=== PATIENT | female | born 1935 | race Caucasian/White ===

== ENCOUNTER 2017-05-29 11:05 | Inpatient (IN) | payer MEDICARE ==
[~2017-05-29] VITALS: Ht 172.7 cm; Wt 56.9 kg
[2017-05-29 11:24] VITALS: BP 188/81; PULSE 83; RESP 19; TEMP 98.3; O2SAT 97
--- NOTE | 2017-05-29 11:27 | PD ---
HPI Chief Complaint: Fall Time Seen by Provider: 11:22 Travel History International Travel<30 days: No Contact w/Intl Traveler<30days: No History of Present Illness HPI 81-year-old female with PMH of HTN, rheumatoid arthritis presents to the ED for evaluation of constant 4/10 left hip pain. Worsened by attempted range of motion. Onset after the patient tripped from standing yesterday and fell onto the concrete, landing on her back, striking her head. Patient denies loss of consciousness. She states that a passerby helped her into a wheelchair and her home. She's been able to transfer from the wheelchair to the commode but otherwise unable to bear weight. On presentation she denies headache, dizziness , vision changes, chest pain, palpitations, shortness of breath, nausea, vomiting, abdominal pain, dysuria, back pain, limitations to range of motion of the upper extremities and right leg. She has a history of a total hip replacement done 10 years ago in [place]. She ate dinner last night. Nothing to eat or drink today. She is followed by , PCP. [facility] Social History Tobacco Use: No Allergies-Medications (Allergen,Severity, Reaction): Coded Allergies: No Known Allergies (Unverified , 05/29/17) Reported Meds & Prescriptions Reported Meds & Active Scripts Active Reported Prednisone 20 Mg Tab 20 Mg PO DIRECTED 40 MG twice a day x 3 days, then 20 MG daily x 3 days, then 10 MG daily x 3 days Simvastatin 5 Mg Tab 5 Mg PO DAILY Hydroxychloroquine (Hydroxychloroquine Sulfate) 200 Mg Tab 200 Mg PO BID Takw with food Ocuvite (Multiple Vitamins W/ Minerals) 1 Tab 1 Tab PO DAILY Folic Acid 1 Mg Tablet Lisinopril 5 Mg Tab 5 Mg PO DAILY Amlodipine (Amlodipine Besylate) 5 Mg Tab 5 Mg PO DAILY Review of Systems Except as stated in HPI: all other systems reviewed are Neg Physical Exam Narrative GENERAL: Well-nourished, well-developed white female in no acute distress. On a backboard, alert, oriented. SKIN: Warm and dry. Thorough evaluation reveals no edema, ecchymosis, abrasion , or laceration of the skin. HEAD: Normocephalic. Atraumatic. No raccoon eyes or allen sign. No tenderness to palpation of the skull. No bony step-offs. No malocclusion of the teeth. EYES: No scleral icterus. No injection or drainage. PERRLA. EOMI. ENT: Pearly medina tympanic membrane is bilaterally. Nasal mucosa is moist. Oropharynx without erythema, edema or exudate. NECK: Supple, trachea midline. No JVD or lymphadenopathy. No midline tenderness to palpation. Patient retains full, active, painless range of motion of the neck. CARDIOVASCULAR: Regular rate and rhythm without murmurs, gallops, or rubs. 2+ DP and radial pulses bilaterally. RESPIRATORY: Breath sounds clear and equal bilaterally. No accessory muscle use. GASTROINTESTINAL: Abdomen soft, non-tender, nondistended. + Bowel sounds FOCUSED LEFT LOWER EXTREMITY EXAM: 2+ DP pulse. No tenderness to palpation of the anterior lateral hip or groin. Pain elicited with attempted internal and external rotation of the extremity. No foreshortening of the leg. Leg rests in internal rotation. Patient is able to wiggle her toes and flex her ankle. Cap refill less than 2 seconds. Sensation intact to light touch distally. MUSCULOSKELETAL: No cyanosis, or edema. No tenderness to palpation or limitations to range of motion of the remaining joints of the upper and lower extremities bilaterally. NEUROLOGICAL: Awake and alert. Cranial nerves II through XII intact. Motor and sensory grossly within normal limits. 5/5 muscle strength in all muscle groups. Normal speech. BACK: Nontender without obvious deformity. No CVA tenderness. No midline tenderness. Data Data Last Documented VS Vital Signs Date Time Temp Pulse Resp B/P (MAP) Pulse Ox O2 Delivery O2 Flow Rate FiO2 05/29/17 11:30 98.3 83 19 167/75 (105) 97 Room Air Orders Orders Ct Brain W/O Iv Contrast(Rout) (05/29/17 11:22) Hip, Uni(Ap&Lat) W Ap Pelvis (05/29/17 11:22) Iv Access Insert/Monitor (05/29/17 11:22) Oximetry (05/29/17 11:22) Ecg Monitoring (05/29/17 11:22) Ondansetron Inj (Zofran Inj) (05/29/17 11:30) Sodium Chloride 0.9% Flush (Ns Flush) (05/29/17 11:30) Morphine Inj (Morphine Inj) (05/29/17 11:30) Electrocardiogram (05/29/17 12:08) Complete Blood Count With Diff (05/29/17 12:08) Comprehensive Metabolic Panel (05/29/17 12:08) Prothrombin Time / Inr (Pt) (05/29/17 12:08) Act Partial Throm Time (Ptt) (05/29/17 12:08) Urinalysis - C+S If Indicated (05/29/17 12:08) Type And Screen (05/29/17 12:08) Chest, Single Ap (05/29/17 12:08) Sodium Chloride 0.9% Flush (Ns Flush) (05/29/17 12:15) Urinary Catheter Insert/Apply (05/29/17 12:08) Consult Orthopedic (05/29/17 ) (Hub Use Only)Inp Phy Cons/Ref (05/29/17 ) Mri Brain W&W/O Contrast (05/29/17 ) Admit Order (Ed Use Only) (05/29/17 13:12) Labs Laboratory Tests Test 05/29/17 12:35 05/29/17 13:00 White Blood Count 6.6 TH/MM3 Red Blood Count 3.39 MIL/MM3 Hemoglobin 9.3 GM/DL Hematocrit 28.5 % Mean Corpuscular Volume 84.2 FL Mean Corpuscular Hemoglobin 27.5 PG Mean Corpuscular Hemoglobin Concent 32.6 % Red Cell Distribution Width 13.8 % Platelet Count 164 TH/MM3 Mean Platelet Volume 9.3 FL Neutrophils (%) (Auto) 80.1 % Lymphocytes (%) (Auto) 6.2 % Monocytes (%) (Auto) 13.2 % Eosinophils (%) (Auto) 0.2 % Basophils (%) (Auto) 0.3 % Neutrophils # (Auto) 5.3 TH/MM3 Lymphocytes # (Auto) 0.4 TH/MM3 Monocytes # (Auto) 0.9 TH/MM3 Eosinophils # (Auto) 0.0 TH/MM3 Basophils # (Auto) 0.0 TH/MM3 CBC Comment DIFF FINAL Differential Comment Prothrombin Time 11.4 SEC Prothromb Time International Ratio 1.0 RATIO Activated Partial Thromboplast Time 23.1 SEC Blood Urea Nitrogen 35 MG/DL Creatinine 1.41 MG/DL Random Glucose 81 MG/DL Total Protein 6.4 GM/DL Albumin 3.2 GM/DL Calcium Level 8.5 MG/DL Alkaline Phosphatase 48 U/L Aspartate Amino Transf (AST/SGOT) 52 U/L Alanine Aminotransferase (ALT/SGPT) 32 U/L Total Bilirubin 1.0 MG/DL Sodium Level 143 MEQ/L Potassium Level 3.7 MEQ/L Chloride Level 107 MEQ/L Carbon Dioxide Level 28.0 MEQ/L Anion Gap 8 MEQ/L Estimat Glomerular Filtration Rate 36 ML/MIN Urine Color LIGHT-YELLOW Urine Turbidity CLEAR Urine pH 6.0 Urine Specific [place] 1.013 Urine Protein TRACE mg/dL Urine Glucose (UA) NEG mg/dL Urine Ketones NEG mg/dL Urine Occult Blood NEG Urine Nitrite NEG Urine Bilirubin NEG Urine Urobilinogen LESS THAN 2.0 MG/DL Urine Leukocyte Esterase NEG Urine RBC 4 /hpf Urine WBC LESS THAN 1 /hpf Urine Bacteria RARE /hpf Urine Mucus FEW /lpf Microscopic Urinalysis Comment CATH-CULTURE IND MDM Medical Decision Making Medical Screen Exam Complete: Yes Emergency Medical Condition: Yes Differential Diagnosis Femoral neck fracture versus femoral shaft fracture versus pelvic fracture versus dislocation versus contusion versus musculoskeletal pain versus skull fracture versus ICH versus other Narrative Course 81-year-old female with PMH of HTN, rheumatoid arthritis presents to the ED for evaluation of constant 4/10 left hip pain,worsened by attempted ROM or weightbearing. Onset after the patient tripped from standing yesterday and fell onto the concrete, landing on her back, striking her head. Denies LOC.. She states that a passerby helped her into a wheelchair and her home. She has a history of a total hip replacement done 10 years ago in [place]. She ate dinner last night. Nothing to eat or drink today. She is followed by , PCP. Vitals reviewed. Physical exam reveals a pleasant white female in no acute distress. There is a 2+ DP pulse in the left leg which is internally rotated but not shortened. Patient is able to wiggle toes and flex the ankle but any attempted internal or external rotation of the hip elicits pain. Patient was ordered nothing by mouth, administered 2 mg morphine and 4 mg Zofran IV. X-RAY LEFT HIP AND PELVIS: Previous arthroplasty. Acute fracture of the proximal femoral diaphysis per radiology read. CT brain: 6 mm focus of increased density as described above. A small mass such as a cavernoma can have this appearance. Acute hemorrhage but less likely. MRI of the brain with and without contrast helpful for further evaluation if felt clinically warranted per radiology read. EKG: Rate 75, sinus rhythm. [place] interval 158, QRS 116, QTc 444 ms. Normal axis. No acute ST changes. Reviewed by Dr. Cummins CBC, CMP, coags, UA, type and screen, chest x-ray ordered and pending. MRI brain with and without contrast: Negative. No evidence for mass per radiology read. Meier catheter was inserted. I discussed the results of the radiological studies with the patient. She is agreeable to admission and orthopedic consultation. I spoke with Dr. Paul by phone. He does not feel that the fracture is surgical at this point. He will consult on the patient. The patient's is wheelchair bound and unable to help her with ADLs. She will likely require admission to a SNF. I spoke with Dr. Byers who agrees to accept the patient to the medicine service. Fabiana Lauren May 29, 2017 11:26
[2017-05-29 11:30] VITALS: BP 167/75; PULSE 83; RESP 19; TEMP 98.3; O2SAT 97
[2017-05-29] MEDS ORDERED: SODIUM CHLORIDE 0.9% FLUSH 10 ML FLUSH IVF PRN ×2 (11:30→12:15)
[2017-05-29] MEDS ORDERED: MORPHINE SULFATE 2 MG/ML INJ IV PUSH ONE (11:30)
[2017-05-29] MEDS ORDERED: ONDANSETRON HCL 4 MG/2 ML VIAL IVP ONE (11:30)
[2017-05-29] MEDS ORDERED: LISI-519 PO (11:38)
[2017-05-29] MEDS ORDERED: FOLI1TAB6 (11:38)
[2017-05-29] MEDS ORDERED: PRED20 PO (11:38)
[2017-05-29] MEDS ORDERED: SIMV5TAB3 PO (11:38)
[2017-05-29] MEDS ORDERED: HYDR200T3 PO (11:38)
[2017-05-29] MEDS ORDERED: OCUVTAB PO (11:38)
[2017-05-29] MEDS ORDERED: AMLO5TAB2 PO (11:38)
--- NOTE | 2017-05-29 12:22 | RADRPT ---
EXAM DATE/TIME: 05/29/2017 11:47 [facility] COMPARISON: No previous studies available for comparison. INDICATIONS : Left hip pain after fall. MEDICAL HISTORY : None. SURGICAL HISTORY : Left hip replacement. ENCOUNTER: Initial ACUITY: 1 day PAIN SCORE: 8/10 LOCATION: Left hip FINDINGS: The patient is post left hip arthroplasty. Orthopedic hardware is in excellent position. Note is made of an acute fracture at the base of the arthroplasty. This is at the junction of the fem oral diaphysis and intratrochanteric region of the femur. There degenerative changes within the right hip. CONCLUSION: 1. There has been previous arthroplasty on the left. 2. There is an acute fracture through the proximal femoral diaphysis. Carlos Moreno MD on May 29, 2017 at 12:17 Board Certified Radiologist. This report was verified electronically.
--- NOTE | 2017-05-29 12:38 | RADRPT ---
EXAM DATE/TIME: 05/29/2017 12:18 [facility] COMPARISON: No previous studies available for comparison. INDICATIONS : Fall yesterday. RADIATION DOSE: 31.12 CTDIvol (mGy) MEDICAL HISTORY : Cardiovascular disease. SURGICAL HISTORY : None. ENCOUNTER: Initial ACUITY: 1 day PAIN SCALE: 0/10 LOCATION: cranial TECHNIQUE: Multiple contiguous axial images were obtained of the head. Using automated exposure control and adj ustment of the mA and/or kV according to patient size, radiation dose was kept as low as reasonably a chievable to obtain optimal diagnostic quality images. DICOM format image data is available electro nically for review and comparison. FINDINGS: Ventricles and cisterns are of normal size and configuration. There is no evidence of acute infarctio n. No fractures are seen. On axial image 20 in the right posterior frontal periventricular white rola er, a small circumscribed area of increased attenuation is noted measuring 6 mm. There is no surround ing edema. It does not have the typical appearance of a parenchymal bleed with questionable central c alcification. Differential diagnosis includes a cavernoma versus tiny parenchymal bleed. The latter i s felt less likely. CONCLUSION: 6 mm focus of increased density as described above. A small mass such as a cavernoma can have this ap pearance. Acute hemorrhage but less likely. MRI of the brain with and without contrast helpful for fu rther evaluation if felt clinically warranted. Fabrizio Fitzpatrick MD on May 29, 2017 at 12:35 Board Certified Radiologist. This report was verified electronically.
[2017-05-29 12:57] LABS: AUTOMATED NEUTROPHIL # 5.3 TH/MM3 (1.8-7.7); BASOPHIL % 0.3 % (0.0-2.0); EOSINOPHIL % 0.2 % (0.0-4.0); HEMATOCRIT 28.5 % (35.0-46.0); HEMO FLAGS DIFF FINAL; LYMPH % 6.2 % (9.0-44.0); LYMPHOCYTE # 0.4 TH/MM3 (1.0-4.8); MEAN CELL VOLUME 84.2 FL (80.0-100.0); MEAN CORPUSCULAR HEMOGLOBIN 27.5 PG (27.0-34.0); MEAN CORPUSCULAR HGB CONC 32.6 % (32.0-36.0); MONO % 13.2 % (0.0-8.0); NEUT % 80.1 % (16.0-70.0); PLATELET COUNT 164 TH/MM3 (150-450); RED BLOOD COUNT 3.39 MIL/MM3 (4.00-5.30); RED CELL DISTRIBUTION WIDTH 13.8 % (11.6-17.2); WHITE BLOOD COUNT 6.6 TH/MM3 (4.0-11.0)
[2017-05-29 13:08] LABS: APTT (PATIENT) 23.1 SEC (24.3-30.1); PROTHROMBIN TIME - PATIENT 11.4 SEC (9.8-11.6)
[2017-05-29 13:12] LABS: ALKALINE PHOSPHATASE 48 U/L (45-117)
[2017-05-29] MEDS ORDERED: BISACODYL 10 MG SUPP RECTAL PRN (13:15)
[2017-05-29] MEDS ORDERED: LACTULOSE SYRUP 20 GM/30 ML CUP PO PRN (13:15)
[2017-05-29] MEDS ORDERED: NALOXONE HCL 0.4 MG/ML AMP IV PUSH PRN ×2 (13:15→17:45)
[2017-05-29] MEDS ORDERED: SENNOSIDES 8.6 MG TAB PO PRN (13:15)
[2017-05-29] MEDS ORDERED: SODIUM CHLORIDE 0.9% FLUSH 10 ML FLUSH IV FLUSH PRN (13:15)
[2017-05-29] MEDS ORDERED: ONDANSETRON HCL 4 MG/2 ML VIAL IVP PRN (13:15)
[2017-05-29] MEDS ORDERED: MAGNESIUM HYDROXIDE SUSP 30 ML CUP PO PRN (13:15)
[2017-05-29] MEDS ORDERED: ACETAMINOPHEN 325 MG TAB PO PRN (13:15)
[2017-05-29 13:18] LABS: ALT (GPT) 32 U/L (10-53); ANION GAP 8 MEQ/L (5-15); BLOOD UREA NITROGEN 35 MG/DL (7-18); CHLORIDE 107 MEQ/L (98-107); GLOMERULAR FILTRATION RATE 36 ML/MIN (>89); SODIUM (NA) 143 MEQ/L (136-145)
--- NOTE | 2017-05-29 13:20 | RADRPT ---
EXAM DATE/TIME: 05/29/2017 12:52 [facility] COMPARISON: No previous studies available for comparison. INDICATIONS : Chest discomfort; fall today. MEDICAL HISTORY : Hypertension. Arthritis. SURGICAL HISTORY : Left total hip replacement. ENCOUNTER: Initial ACUITY: 1 day PAIN SCORE: 07/24 LOCATION: Bilateral chest FINDINGS: A single view of the chest demonstrates the lungs to be symmetrically aerated without evidence of mas s, infiltrate or effusion. There is a linear density overlying the right lung apex. Vascular markings are seen on either side of this. No pneumothorax present. The cardiomediastinal contours are unrema rkable. Osseous structures are intact. CONCLUSION: No acute disease. Timothy Casanova Jr., MD on May 29, 2017 at 13:17 Board Certified Radiologist. This report was verified electronically.
[2017-05-29 13:26] LABS: AST (GOT) 52 U/L (15-37); POTASSIUM 3.7 MEQ/L (3.5-5.1)
[2017-05-29 13:28] LABS: BACTERIA, URINE RARE /hpf; BLOOD, URINE NEG (NEG); GLUCOSE,URINE NEG (NEG); KETONE, URINE NEG (NEG); MUCUS URINE FEW /lpf (OCC); NITRITE,URINE NEG (NEG); URINE COLOR LIGHT-YELLOW (YELLW/STRAW)
[2017-05-29 13:35] VITALS: O2SAT 99
[2017-05-29 13:44] LABS: COMMENT (UR) CATH-CULTURE IND; CULTURE IF INDICATED CATH CULTURE IND
[2017-05-29] MEDS ORDERED: SODIUM CHLORID 0.9% 500 ML INJ 500 ML IV ONE (14:00)
[2017-05-29] MEDS: ENOXAPARIN SODIUM 40 MG/0.4 ML SYRINGE SQ SCH (14:19)
--- NOTE | 2017-05-29 15:12 | HHI.HP ---
HPI Service [facility] Primary Care Physician Unknown Admission Diagnosis left hip fracture Diagnoses: Chief Complaint: Left hip Pain Travel History International Travel<30 Days: No Contact w/Intl Traveler <30 Da: No Traveled to Known Affected Are: No History of Present Illness Written by Valentin Ramos, acting as scribe for Dr. Byers on 05/29/17 at 15: 12. Patient is an 81-year-old female with primary medical history of HTN, RA, HLD who came to the hospital for evaluation of left hip pain status post mechanical fall. Patient states that she tripped on her calzada and fell backwards and that's when she felt increasing left hip pain. States that she had left hip surgery done 10 years ago in [place]. She also admits to taking prednisone for her RA but does not know the dose. States that left hip pain has improved as long as she does not put any pressure on it or move it. Denies pain and discomfort. Denies SOB/ dyspnea. Denies chest pain, palpitations, headaches, dizziness. Denies fevers, chills, n/v/d. Denies dysuria. Review of Systems Except as stated in HPI: all other systems reviewed are Neg Past Family Social History Past Medical History HTN HLD RA Past Surgical History Left hip surgery 10 years ago - total hip arthroplasty Bilateral knee replacement Right hand surgery Reported Medications Reported Meds & Active Scripts Active Reported Prednisone 20 Mg Tab 20 Mg PO DIRECTED 40 MG twice a day x 3 days, then 20 MG daily x 3 days, then 10 MG daily x 3 days Simvastatin 5 Mg Tab 5 Mg PO DAILY Hydroxychloroquine (Hydroxychloroquine Sulfate) 200 Mg Tab 200 Mg PO BID Takw with food Ocuvite (Multiple Vitamins W/ Minerals) 1 Tab 1 Tab PO DAILY Folic Acid 1 Mg Tablet Lisinopril 5 Mg Tab 5 Mg PO DAILY Amlodipine (Amlodipine Besylate) 5 Mg Tab 5 Mg PO DAILY Allergies: Coded Allergies: No Known Allergies (Unverified , 05/29/17) Active Ordered Medications Current Medications Medications (Trade) Dose Ordered Sig/Sandie Route Start Time Stop Time Status Last Admin (NS Flush) 2 ml UNSCH PRN IV FLUSH 05/29/17 13:15 (NS Flush) 2 ml BID IV FLUSH 05/29/17 21:00 (Tylenol) 650 mg Q4H PRN PO 05/29/17 13:15 (Zofran Inj) 4 mg Q6H PRN IVP 05/29/17 13:15 (Lovenox Inj) 40 mg Q24H SQ 05/29/17 14:00 05/29/17 14:19 (Narcan Inj) 0.4 mg UNSCH PRN IV PUSH 05/29/17 13:15 (Heather-Colace) 1 tab BID PO 05/29/17 21:00 (Milk Of Magnesia Liq) 30 ml Q12H PRN PO 05/29/17 13:15 (Senokot) 17.2 mg Q12H PRN PO 05/29/17 13:15 (Dulcolax Supp) 10 mg DAILY PRN RECTAL 05/29/17 13:15 (Lactulose Liq) 30 ml DAILY PRN PO 05/29/17 13:15 (Norvasc) 5 mg DAILY PO 05/30/17 09:00 (Plaquenil) 200 mg BID PO 05/29/17 21:00 (Prinivil) 5 mg DAILY PO 05/30/17 09:00 (Deltasone) 20 mg DAILY PO 05/30/17 09:00 (Pravachol) 10 mg DAILY PO 05/30/17 09:00 Family History Denies any significant family medical history. States that family members are all healthy and of old age. Social History Denies alcohol use Denies tobacco use Denies illicit drug use Physical Exam Vital Signs Vital Signs Date Time Temp Pulse Resp B/P (MAP) Pulse Ox O2 Delivery O2 Flow Rate FiO2 05/29/17 13:35 99 21 05/29/17 11:30 98.3 83 19 167/75 (105) 97 Room Air 05/29/17 11:30 98.3 83 19 167/75 (105) 97 Room Air 05/29/17 11:30 83 19 97 Room Air 05/29/17 11:24 98.3 83 19 188/81 (116) 97 Physical Exam GENERAL: This is a well-nourished, well-developed patient, in no apparent distress. SKIN: Warm and dry. Bilateral lower extremity positive erythema, stasis dermatitis HEAD: Normocephalic. EYES: Pupils equal round and reactive. Extraocular motions intact. No scleral icterus. No injection or drainage. ENT: Nose without bleeding. Throat without erythema. Uvula midline. Airway patent. NECK: Trachea midline. No JVD or lymphadenopathy. Supple, nontender, no meningeal signs. CARDIOVASCULAR: Regular rate and rhythm without murmurs, gallops, or rubs. RESPIRATORY: Clear to auscultation. Breath sounds equal bilaterally. No wheezes , rales, or rhonchi. GASTROINTESTINAL: Abdomen soft, non-tender, nondistended. Bowel sounds active 4 MUSCULOSKELETAL: Extremities without clubbing, cyanosis, or edema. Left hip area pain to palpation. NEUROLOGICAL: Awake and alert. Cranial nerves II through XII intact. Oriented to person, place, situation, time. Motor and sensory grossly within normal limits. Normal speech. Laboratory Laboratory Tests Test 05/29/17 12:35 05/29/17 13:00 White Blood Count 6.6 Red Blood Count 3.39 Hemoglobin 9.3 Hematocrit 28.5 Mean Corpuscular Volume 84.2 Mean Corpuscular Hemoglobin 27.5 Mean Corpuscular Hemoglobin Concent 32.6 Red Cell Distribution Width 13.8 Platelet Count 164 Mean Platelet Volume 9.3 Neutrophils (%) (Auto) 80.1 Lymphocytes (%) (Auto) 6.2 Monocytes (%) (Auto) 13.2 Eosinophils (%) (Auto) 0.2 Basophils (%) (Auto) 0.3 Neutrophils # (Auto) 5.3 Lymphocytes # (Auto) 0.4 Monocytes # (Auto) 0.9 Eosinophils # (Auto) 0.0 Basophils # (Auto) 0.0 CBC Comment DIFF FINAL Differential Comment Prothrombin Time 11.4 Prothromb Time International Ratio 1.0 Activated Partial Thromboplast Time 23.1 Blood Urea Nitrogen 35 Creatinine 1.41 Random Glucose 81 Total Protein 6.4 Albumin 3.2 Calcium Level 8.5 Alkaline Phosphatase 48 Aspartate Amino Transf (AST/SGOT) 52 Alanine Aminotransferase (ALT/SGPT) 32 Total Bilirubin 1.0 Sodium Level 143 Potassium Level 3.7 Chloride Level 107 Carbon Dioxide Level 28.0 Anion Gap 8 Estimat Glomerular Filtration Rate 36 Urine Color LIGHT-YELLOW Urine Turbidity CLEAR Urine pH 6.0 Urine Specific [place] 1.013 Urine Protein TRACE Urine Glucose (UA) NEG Urine Ketones NEG Urine Occult Blood NEG Urine Nitrite NEG Urine Bilirubin NEG Urine Urobilinogen LESS THAN 2.0 Urine Leukocyte Esterase NEG Urine RBC 4 Urine WBC LESS THAN 1 Urine Bacteria RARE Urine Mucus FEW Microscopic Urinalysis Comment CATH-CULTURE IND Date/Time Source Procedure Growth Status 05/29/17 13:00 Urine Catheterized Urine Urine Culture Pending Received Result Diagram: 05/29/17 1235 05/29/17 1235 Imaging Last Impressions Chest X-Ray 05/29/17 1208 Signed Impressions: Service Date/Time: Monday, May 29, 2017 12:52 - CONCLUSION: No acute disease. Timothy Casanova Jr., MD Hip and Pelvis X-Ray 05/29/17 1122 Signed Impressions: Service Date/Time: Monday, May 29, 2017 11:47 - CONCLUSION: 1. There has been previous arthroplasty on the left. 2. There is an acute fracture through the proximal femoral diaphysis. Carlos Moreno MD Head CT 05/29/17 1122 Signed Impressions: Service Date/Time: Monday, May 29, 2017 12:18 - CONCLUSION: 6 mm focus of increased density as described above. A small mass such as a cavernoma can have this appearance. Acute hemorrhage but less likely. MRI of the brain with and without contrast helpful for further evaluation if felt clinically warranted. Fabrizio Fitzpatrick MD Capmelindai VTE Risk Assessment Caprini VTE Risk Assessment: Mod/High Risk (score >= 2) Caprini Risk Assessment Model Point Value = 1 Point Value = 2 Point Value = 3 Point Value = 5 Age 41-60 Minor surgery BMI > 25 kg/m2 Swollen legs Varicose veins or History of unexplained or recurrent spontaneous Oral contraceptives or hormone replacement Sepsis (< 1 month) Serious lung disease, including pneumonia (< 1 month) Abnormal pulmonary function Acute myocardial infarction Congestive heart failure (< 1 month) History of inflammatory bowel disease Medical patient at bed rest Age 61-74 Arthroscopic surgery Major open surgery (> 45 min) Laparoscopic surgery (> 45 min) Malignancy Confined to bed (> 72 hours) Immobilizing plaster cast Central venous access Age >= 75 History of VTE Family history of VTE Factor V Leiden Prothrombin [id number] Lupus anticoagulant Anticardiolipin antibodies Elevated serum homocysteine Heparin-induced thrombocytopenia Other congenital or acquired thrombophilia Stroke (< 1 month) Elective arthroplasty Hip, pelvis, or leg fracture Acute spinal cord injury (< 1 month) Prophylaxis Regimen Total Risk Factor Score Risk Level Prophylaxis Regimen 0-1 Low Early ambulation 2 Moderate Order ONE of the following: *Sequential Compression Device (SCD) *Heparin 5000 units SQ BID 3-4 Higher Order ONE of the following medications: *Heparin 5000 units SQ TID *Enoxaparin/Lovenox 40 mg SQ daily (WT < 150 kg, CrCl > 30 mL/min) *Enoxaparin/Lovenox 30 mg SQ daily (WT < 150 kg, CrCl > 10-29 mL/min) *Enoxaparin/Lovenox 30 mg SQ BID (WT < 150 kg, CrCl > 30 mL/min) AND/OR *Sequential Compression Device (SCD) 5 or more Highest Order ONE of the following medications: *Heparin 5000 units SQ TID (Preferred with Epidurals) *Enoxaparin/Lovenox 40 mg SQ daily (WT < 150 kg, CrCl > 30 mL/min) *Enoxaparin/Lovenox 30 mg SQ daily (WT < 150 kg, CrCl > 10-29 mL/min) *Enoxaparin/Lovenox 30 mg SQ BID (WT < 150 kg, CrCl > 30 mL/min) AND *Sequential Compression Device (SCD) Assessment and Plan Problem List: (1) HTN (hypertension) ICD Code: I10 - Essential (primary) hypertension Status: Chronic (2) Rheumatoid arthritis ICD Code: M06.9 - Rheumatoid arthritis, unspecified Status: Chronic (3) Hip fracture, left ICD Code: S72.002A - Fracture of unspecified part of neck of left femur, initial encounter for closed fracture Status: Acute Assessment and Plan Patient is an 81-year-old female with primary medical history of HTN, RA, HLD who came to the hospital for evaluation of left hip pain status post mechanical fall. Left proximal femoral diaphysis fracture, acute Status post fall Left hip pain, acute - X-ray showed 1. There has been previous arthroplasty on the left. 2. There is an acute fracture through the proximal femoral diaphysis. - CT of the head showed 6 mL focus of increased density as described above. A small mass such as a cavernoma can have this appearance. Acute hemorrhage but less likely. MRI of the brain with and without contrast helpful for further evaluation if felt clinically warranted. - Patient is status fall. MRI for further evaluation. - Neurochecks - Pain management - Orthopedic surgeon consulted for further evaluation and recommendation. - Follow-up labs Urinary tract infection - UA pending cultures. Acute kidney injury - Possibly secondary to urinary tract infection vs dehydration - IV fluids for hydration - Avoid nephrotoxins - Follow renal indices HTN, chronic HLD - Continue home medication amlodipine 5mg, lisinopril 5mg, pravastatin - Monitor BP trend Rheumatoid arthritis - States she has been off Plaquenil but has continued to use prednisone. We' ll ask nurse to verify with current pharmacy. - Monitor for flare ups. DVT prop Lovenox, will change to heparin secondary to renal injury This note was transcribed by ELHAM Macedo. I, Dr. Izabel Byers personally performed the history, physical exam, and medical decision making; and confirmed the accuracy of the information in the transcribed note. Authenticated by Dr. Izabel Byers on 05/29/17 at 15:12. Code Status Full Code Discussed Condition With Patient, nursing, ED Attending Physician Certification 2 Midnight Certification Type: Admission for Inpatient Services Order for Inpatient Services The services are ordered in accordance with Medicare regulations or non- Medicare payer requirements, as applicable. In the case of services not specified as inpatient-only, they are appropriately provided as inpatient services in accordance with the 2-midnight benchmark. Estimated LOS (days): 2 days is the estimated time the patient will need to remain in the hospital, assuming treatment plan goals are met and no additional complications. Post-Hospital Plan: [facility] Valentin Layne May 29, 2017 15:12 Izabel Byers MD May 29, 2017 17:38
[2017-05-29 16:59] VITALS: BP 148/67
[2017-05-29] MEDS ORDERED: GADOBENATE DIM PF 529 MG/ML 10ML VIAL (for RAD MRI) IV ONE (17:29)
[2017-05-29] MEDS ORDERED: ACETAMINOPHEN/HYDROcodone 325 MG/5 MG TAB PO PRN (17:45)
[2017-05-29] MEDS ORDERED: HYDROmorphone HCL PF 0.5 MG/0.5 ML SYRINGE IV PUSH PRN (17:45)
[2017-05-29] MEDS ORDERED: ACETAMINOPHEN/HYDROcodone 325 MG/7.5 MG TAB PO PRN (17:45)
--- NOTE | 2017-05-29 17:54 | RADRPT ---
EXAM DATE/TIME: 05/29/2017 16:58 [place] COMPARISON: No previous studies available for comparison. INDICATIONS : Mass. Recent fall. CONTRAST: 10 cc Multihance (gadobenate) IV MEDICAL HISTORY : Hypertension. Arthritis. SURGICAL HISTORY : Bilateral knee surgery. Left hip surgery. ENCOUNTER: Subsequent ACUITY: 1 day PAIN SCORE: 0/10 LOCATION: head. TECHNIQUE: Multiplanar, multisequence MRI of the brain was performed both prior to and following the administrat ion of paramagnetic contrast. FINDINGS: There is marked central and cortical atrophy with dilatation of ventricular and sulcal spaces. There is mild dilatation of ventricles. There is no restricted diffusion to suggest infarction. There are no extra-axial fluid collections appreciated. There is no parenchymal hemorrhage. Posterior fossa is unremarkable. There is no abnormal contrast enhancement. CONCLUSION: Negative. I do not see evidence for mass. Favian Moreno MD FACR on May 29, 2017 at 17:51 Board Certified Radiologist. This report was verified electronically.
[2017-05-29] MEDS: DOCUSATE SODIUM 50 MG/SENNA 8.6 MG TAB PO SCH (21:34)
[2017-05-29] MEDS: HYDROXYCHLOROQUINE SULFATE 200 MG TAB PO SCH (21:34)
[2017-05-29] MEDS: SODIUM CHLORIDE 0.9% FLUSH 10 ML FLUSH IV FLUSH SCH (21:34)
[2017-05-30] VITALS: BP 146/69; PULSE 73; RESP 18; TEMP 97.2; O2SAT 100
[2017-05-30 04:00] VITALS: BP 159/76; PULSE 71; RESP 20; TEMP 98.2
[2017-05-30 08:00] VITALS: BP 131/57; PULSE 71; RESP 17; TEMP 96.7; O2SAT 98
[2017-05-30 08:42] LABS: HEMATOCRIT 28.3 % (35.0-46.0); MEAN CELL VOLUME 84.8 FL (80.0-100.0); MEAN CORPUSCULAR HEMOGLOBIN 28.2 PG (27.0-34.0); MEAN CORPUSCULAR HGB CONC 33.3 % (32.0-36.0); PLATELET COUNT 120 TH/MM3 (150-450); RED BLOOD COUNT 3.34 MIL/MM3 (4.00-5.30); RED CELL DISTRIBUTION WIDTH 13.9 % (11.6-17.2); WHITE BLOOD COUNT 5.2 TH/MM3 (4.0-11.0)
[2017-05-30] MEDS: amLODIPine BESYLATE 5 MG TAB PO SCH (08:42)
[2017-05-30] MEDS: HYDROXYCHLOROQUINE SULFATE 200 MG TAB PO SCH ×2 (08:43→21:49)
[2017-05-30] MEDS: LISINOPRIL 5 MG TAB PO SCH (08:43)
[2017-05-30] MEDS: PRAVASTATIN SOD 10 MG TAB PO SCH (08:43)
[2017-05-30] MEDS: predniSONE 20 MG TAB PO SCH (08:43)
[2017-05-30] MEDS: DOCUSATE SODIUM 50 MG/SENNA 8.6 MG TAB PO SCH ×2 (08:43→21:48)
--- NOTE | 2017-05-30 08:43 | HHI.PR ---
Subjective Remarks With hypoglycemia, patient did not received breakfast yet. Says she feels tired. No n/v/d/c. No abd cramps. Discussed with the nurse received OJ, crackers , peanut butter. Objective Vitals Vital Signs Date Time Temp Pulse Resp B/P (MAP) Pulse Ox O2 Delivery O2 Flow Rate FiO2 05/30/17 08:00 96.7 71 17 131/57 (81) 98 05/30/17 04:00 98.2 71 20 159/76 (103) 05/30/17 00:00 97.2 73 18 146/69 (94) 100 05/29/17 19:55 21 05/29/17 16:59 78 18 148/67 (94) 100 05/29/17 13:35 99 21 05/29/17 11:30 98.3 83 19 167/75 (105) 97 Room Air 05/29/17 11:30 98.3 83 19 167/75 (105) 97 Room Air 05/29/17 11:30 83 19 97 Room Air 05/29/17 11:24 98.3 83 19 188/81 (116) 97 I/O 05/29/17 05/29/17 05/29/17 05/30/17 05/30/17 05/30/17 07:00 15:00 23:00 07:00 15:00 23:00 Intake Total 240 ml Output Total 1225 ml 250 ml Balance -985 ml -250 ml Intake Oral 240 ml Output Urine Total 1225 ml 250 ml Result Diagram: 05/29/17 1235 05/29/17 1235 Imaging Last Impressions Chest X-Ray 05/29/17 1208 Signed Impressions: Service Date/Time: Monday, May 29, 2017 12:52 - CONCLUSION: No acute disease. Timothy Casanova Jr., MD Hip and Pelvis X-Ray 05/29/17 1122 Signed Impressions: Service Date/Time: Monday, May 29, 2017 11:47 - CONCLUSION: 1. There has been previous arthroplasty on the left. 2. There is an acute fracture through the proximal femoral diaphysis. Carlos Moreno MD Head CT 05/29/17 1122 Signed Impressions: Service Date/Time: Monday, May 29, 2017 12:18 - CONCLUSION: 6 mm focus of increased density as described above. A small mass such as a cavernoma can have this appearance. Acute hemorrhage but less likely. MRI of the brain with and without contrast helpful for further evaluation if felt clinically warranted. Fabrizio Fitzpatrick MD Brain MRI 05/29/17 0000 Signed Impressions: Service Date/Time: Monday, May 29, 2017 16:58 - CONCLUSION: Negative. I do not see evidence for mass. Favian Moreno MD FACR Objective Remarks GENERAL: This is a well-nourished, well-developed patient, in no apparent distress. SKIN: Warm and dry. Bilateral lower extremity positive erythema, stasis dermatitis CARDIOVASCULAR: Regular rate and rhythm without murmurs, gallops, or rubs. RESPIRATORY: Clear to auscultation. Breath sounds equal bilaterally. No wheezes , rales, or rhonchi. GASTROINTESTINAL: Abdomen soft, non-tender, nondistended. Bowel sounds active 4 MUSCULOSKELETAL: Extremities without clubbing, cyanosis, or edema. Left hip area pain to palpation. NEUROLOGICAL: Awake and alert. Cranial nerves II through XII intact. Oriented to person, place, situation, time. Motor and sensory grossly within normal limits. Normal speech. A/P Problem List: (1) HTN (hypertension) ICD Code: I10 - Essential (primary) hypertension Status: Chronic (2) Rheumatoid arthritis ICD Code: M06.9 - Rheumatoid arthritis, unspecified Status: Chronic (3) Hip fracture, left ICD Code: S72.002A - Fracture of unspecified part of neck of left femur, initial encounter for closed fracture Status: Acute Assessment and Plan Patient is an 81-year-old female with primary medical history of HTN, RA, HLD who came to the hospital for evaluation of left hip pain status post mechanical fall. Left proximal femoral diaphysis fracture, acute Status post fall Left hip pain, acute - X-ray showed 1. There has been previous arthroplasty on the left. 2. There is an acute fracture through the proximal femoral diaphysis. - CT of the head showed 6 mL focus of increased density as described above. A small mass such as a cavernoma can have this appearance. Acute hemorrhage but less likely. MRI of the brain with and without contrast helpful for further evaluation if felt clinically warranted. - Patient is status fall. MRI brain reviewed and is normal. - Neurochecks - Pain management dilaudid IV and norco PO .MOnitor closely VS. Add bowel regimen as well. - Orthopedic surgeon consulted for further evaluation and recommendation. Doesn;t recommends surgical intervention. - Follow-up labs Urinary tract infection - UA pending cultures. Acute kidney injury, monitor kidney indices , improving - Possibly secondary to urinary tract infection vs dehydration - IV fluids for hydration - Avoid nephrotoxins - Follow renal indices Hypoglycemia noted BS of 40 in the morning. Patient id not received breakfast and says hse ws not eating much either. Will add hypoglycemic protocol. Received breakfst has OJ, crackers and peanut butter stst and BS imprpved. Monitor BS with accuchecks. Will add MVT to increase appetite. HTN, chronic HLD - Continue home medication amlodipine 5mg, lisinopril 5mg, pravastatin - Monitor BP trend Rheumatoid arthritis - States she has been off Plaquenil but has continued to use prednisone. We' ll ask nurse to verify with current pharmacy. - Monitor for flare ups. DVT prop Lovenox, will change to heparin secondary to renal injury Code Status Full Code Discussed Condition With Patient, nurse Izabel Byers MD May 30, 2017 08:43
[2017-05-30] MEDS: SODIUM CHLORIDE 0.9% FLUSH 10 ML FLUSH IV FLUSH SCH ×2 (08:44→21:49)
[2017-05-30] MEDS ORDERED: NORC5TAB PO (08:45)
[2017-05-30] MEDS ORDERED: PERI PO (08:47)
--- NOTE | 2017-05-30 08:47 | HHI.DS ---
Discharge Summary Admission Date May 29, 2017 at 13:13 Discharge Date: May 31, 2017 Admitting Diagnosis left hip fracture (1) HTN (hypertension) ICD Code: I10 - Essential (primary) hypertension Status: Chronic (2) Rheumatoid arthritis ICD Code: M06.9 - Rheumatoid arthritis, unspecified Status: Chronic (3) Hip fracture, left ICD Code: S72.002A - Fracture of unspecified part of neck of left femur, initial encounter for closed fracture Status: Acute Procedures none Brief History - From Admission Written by Valentin Ramos, acting as scribe for Dr. Byers on 05/29/17 at 15: 12. Patient is an 81-year-old female with primary medical history of HTN, RA, HLD who came to the hospital for evaluation of left hip pain status post mechanical fall. Patient states that she tripped on her calzada and fell backwards and that's when she felt increasing left hip pain. States that she had left hip surgery done 10 years ago in [place]. She also admits to taking prednisone for her RA but does not know the dose. States that left hip pain has improved as long as she does not put any pressure on it or move it. Denies pain and discomfort. Denies SOB/ dyspnea. Denies chest pain, palpitations, headaches, dizziness. Denies fevers, chills, n/v/d. Denies dysuria. CBC/BMP: 05/29/17 1235 05/29/17 1235 Significant Findings Laboratory Tests Test 05/29/17 12:35 05/29/17 13:00 05/30/17 07:00 Red Blood Count 3.39 MIL/MM3 (4.00-5.30) Hemoglobin 9.3 GM/DL (11.6-15.3) Hematocrit 28.5 % (35.0-46.0) Neutrophils (%) (Auto) 80.1 % (16.0-70.0) Lymphocytes (%) (Auto) 6.2 % (9.0-44.0) Monocytes (%) (Auto) 13.2 % (0.0-8.0) Lymphocytes # (Auto) 0.4 TH/MM3 (1.0-4.8) Activated Partial Thromboplast Time 23.1 SEC (24.3-30.1) Blood Urea Nitrogen 35 MG/DL (7-18) Creatinine 1.41 MG/DL (0.50-1.00) Albumin 3.2 GM/DL (3.4-5.0) Aspartate Amino Transf (AST/SGOT) 52 U/L (15-37) Estimat Glomerular Filtration Rate 36 ML/MIN (>89) Urine RBC 4 /hpf (0-3) Urine Bacteria RARE /hpf (NONE) Urine Mucus FEW /lpf (OCC) Imaging Last Impressions Chest X-Ray 05/29/17 1208 Signed Impressions: Service Date/Time: Monday, May 29, 2017 12:52 - CONCLUSION: No acute disease. Timothy Casanova Jr., MD Hip and Pelvis X-Ray 05/29/17 1122 Signed Impressions: Service Date/Time: Monday, May 29, 2017 11:47 - CONCLUSION: 1. There has been previous arthroplasty on the left. 2. There is an acute fracture through the proximal femoral diaphysis. Carlos Moreno MD Head CT 05/29/17 1122 Signed Impressions: Service Date/Time: Monday, May 29, 2017 12:18 - CONCLUSION: 6 mm focus of increased density as described above. A small mass such as a cavernoma can have this appearance. Acute hemorrhage but less likely. MRI of the brain with and without contrast helpful for further evaluation if felt clinically warranted. Fabrizio Fitzpatrick MD Brain MRI 05/29/17 0000 Signed Impressions: Service Date/Time: Monday, May 29, 2017 16:58 - CONCLUSION: Negative. I do not see evidence for mass. Favian Moreno MD FACR PE at Discharge GENERAL: This is a well-nourished, well-developed patient, in no apparent distress. SKIN: Warm and dry. Bilateral lower extremity positive erythema, stasis dermatitis CARDIOVASCULAR: Regular rate and rhythm without murmurs, gallops, or rubs. RESPIRATORY: Clear to auscultation. Breath sounds equal bilaterally. No wheezes , rales, or rhonchi. GASTROINTESTINAL: Abdomen soft, non-tender, nondistended. Bowel sounds active 4 MUSCULOSKELETAL: Extremities without clubbing, cyanosis, or edema. Left hip area pain to palpation. NEUROLOGICAL: Awake and alert. Cranial nerves II through XII intact. Oriented to person, place, situation, time. Motor and sensory grossly within normal limits. Normal speech. Pt update on day of discharge In the chair , pain is controlled by meds. No fever or chills. No n/v/d/c. Plan to go to SNF today. Hospital Course Patient is an 81-year-old female with primary medical history of HTN, RA, HLD who came to the hospital for evaluation of left hip pain status post mechanical fall. Left proximal femoral diaphysis fracture, acute Status post fall Left hip pain, acute - X-ray showed 1. There has been previous arthroplasty on the left. 2. There is an acute fracture through the proximal femoral diaphysis. - CT of the head showed 6 mL focus of increased density as described above. A small mass such as a cavernoma can have this appearance. Acute hemorrhage but less likely. MRI of the brain with and without contrast helpful for further evaluation if felt clinically warranted. - Patient is status fall. MRI brain reviewed and is normal. - Neurochecks - Pain management dilaudid IV and norco PO .MOnitor closely VS. Add bowel regimen as well. - Orthopedic surgeon consulted for further evaluation and recommendation. Doesn;t recommends surgical intervention. - Follow-up labs Urinary tract infection - UA pending cultures. Acute kidney injury, monitor kidney indices , improving - Possibly secondary to urinary tract infection vs dehydration - IV fluids for hydration - Avoid nephrotoxins - Follow renal indices Hypoglycemia noted BS of 40 in the morning. Patient id not received breakfast and says hse ws not eating much either. Will add hypoglycemic protocol. Received breakfst has OJ, crackers and peanut butter stst and BS imprpved. Monitor BS with accuchecks. Will add MVT to increase appetite. HTN, chronic HLD - Continue home medication amlodipine 5mg, lisinopril 5mg, pravastatin - Monitor BP trend Rheumatoid arthritis - States she has been off Plaquenil but has continued to use prednisone. We' ll ask nurse to verify with current pharmacy. - Monitor for flare ups. Hypokalemia : Replace with KCl. Monitor and replace as need. DVT prop Lovenox, will change to heparin secondary to renal injury Code Status Full Code Discussed Condition With Patient, nurse, case management Patein improved, she is discharged to SNF in stable condition to follow up as Op with PCP and consultants. Pt Condition on Discharge: Stable Discharge Disposition: Discharge to SNF Discharge Time: > 30 minutes Discharge Instructions DIET: Follow Instructions for: Heart Healthy Diet Activities you can perform: Weight Bearing as Dariana Follow up Referrals: Orthopedics - 2 Weeks PCP Follow-up - 2-3 Days New Medications: Hydrocodone-Acetaminophen ([place]) 5 Mg-325 Mg Tab 1 TAB PO Q6H PRN for PAIN, #20 TAB 0 Refills Sennosides-Docusate Sodium (Gnp Senna Plus 8.6-50 mg) 8.6 Mg-50 Mg Tab 1 TAB PO BID for Constipation for 30 Days, #60 TAB Continued Medications: Amlodipine (Amlodipine) 5 Mg Tab 5 MG PO DAILY for Blood Pressure Management, #30 TAB 0 Refills Folic Acid (Folic Acid) 1 Mg Tablet Hydroxychloroquine (Hydroxychloroquine) 200 Mg Tab 200 MG PO BID, #60 TAB 0 Refills Takw with food Lisinopril (Lisinopril) 5 Mg Tab 5 MG PO DAILY for Blood Pressure Management, #30 TAB 0 Refills Multiple Vitamins W/ Minerals (Ocuvite) 1 Tab 1 TAB PO DAILY for Nutritional Supplement, TAB 0 Refills Prednisone (Prednisone) 20 Mg Tab 20 MG PO DIRECTED for Inflammation, #11 TAB 0 Refills 40 MG twice a day x 3 days, then 20 MG daily x 3 days, then 10 MG daily x 3 days Simvastatin (Simvastatin) 5 Mg Tab 5 MG PO DAILY for Cholesterol Management, #30 TAB 0 Refills Izabel Byers MD May 30, 2017 08:47
[2017-05-30 08:54] LABS: HEMO FLAGS AUTO DIFF
[2017-05-30] MEDS ORDERED: PNEUMOCOCCAL POLYVALENT INJ 25 MCG/0.5 ML SYR IM ONE (09:00)
[2017-05-30 09:13] LABS: BICARBONATE 24.8 MEQ/L (21.0-32.0); POTASSIUM 3.4 MEQ/L (3.5-5.1)
[2017-05-30 09:44] LABS: BANDS 5 % (0-6); NEUTROPHIL # MANUAL DIFF 4.2 TH/MM3 (1.8-7.7); PLATELET ESTIMATE SMEAR LOW (NORMAL); PLATELET MORPHOLOGY NORMAL (NORMAL); POLYS (SEG NEUTROPHILS) 76 % (16-70); WBC DIFF SAMPLE 100
[2017-05-30 09:45] LABS: SCAN/DIFF FINAL DIFF MANUAL
[2017-05-30] MEDS ORDERED: GLUCAGON 1 MG/ML VIAL OTHER PRN (10:45)
[2017-05-30] MEDS ORDERED: DEXTROSE 50% IN WATER 50 ML VIAL(D50) IV PUSH PRN (10:45)
[2017-05-30] MEDS ORDERED: POTASSIUM CHLORIDE 10 MEQ CONTROLLED RELEASE TAB PO ONE (10:45)
[2017-05-30] MEDS: SODIUM CHLOR 0.9% 1000 ML INJ 1,000 ML IV SCH ×2 (10:45→22:40)
--- NOTE | 2017-05-30 11:17 | PD.CONS ---
HPI Service Orthopedic Surgeons Consult Requested By Medical staff Reason for Consult Fracture left proximal femur Primary Care Physician Unknown Admission Diagnosis left hip fracture Diagnoses: (1) HTN (hypertension) (2) Rheumatoid arthritis (3) Hip fracture, left Chief Complaint: Left hip pain History of Present Illness This patient is an 81-year-old female who tripped and fell yesterday sustaining an injury to her left hip. She is brought to the emergency room. She was evaluated and found to have evidence of a fracture of the left proximal femur. The patient has a history of a previous total hip replacement performed in [facility] about 10 years ago. She had done well until this episode. She denies a syncopal episode. Past Family Social History Past Medical History HTN HLD RA Past Surgical History Left hip surgery 10 years ago - total hip arthroplasty Bilateral knee replacement Right hand surgery Allergies: Coded Allergies: No Known Allergies (Unverified , 05/29/17) Active Ordered Medications Current Medications Medications (Trade) Dose Ordered Sig/Sandie Route Start Time Stop Time Status Last Admin (NS Flush) 2 ml UNSCH PRN IV FLUSH 05/29/17 13:15 (NS Flush) 2 ml BID IV FLUSH 05/29/17 21:00 05/30/17 08:44 (Tylenol) 650 mg Q4H PRN PO 05/29/17 13:15 (Zofran Inj) 4 mg Q6H PRN IVP 05/29/17 13:15 (Lovenox Inj) 40 mg Q24H SQ 05/29/17 14:00 05/29/17 14:19 (Narcan Inj) 0.4 mg UNSCH PRN IV PUSH 05/29/17 13:15 (Heather-Colace) 1 tab BID PO 05/29/17 21:00 05/30/17 08:43 (Milk Of Magnesia Liq) 30 ml Q12H PRN PO 05/29/17 13:15 (Senokot) 17.2 mg Q12H PRN PO 05/29/17 13:15 (Dulcolax Supp) 10 mg DAILY PRN RECTAL 11/15/17 13:15 (Lactulose Liq) 30 ml DAILY PRN PO 05/29/17 13:15 (Norvasc) 5 mg DAILY PO 05/30/17 09:00 05/30/17 08:42 (Plaquenil) 200 mg BID PO 05/29/17 21:00 05/30/17 08:43 (Prinivil) 5 mg DAILY PO 05/30/17 09:00 05/30/17 08:43 (Deltasone) 20 mg DAILY PO 05/30/17 09:00 05/30/17 08:43 (Pravachol) 10 mg DAILY PO 05/30/17 09:00 05/30/17 08:43 ([place] 5-325 Mg) 1 tab Q4H PRN PO 05/29/17 17:45 ([place] 7.5-325 Mg) 1 tab Q4H PRN PO 05/29/17 17:45 (Dilaudid Pf Inj) 0.5 mg Q4H PRN IV PUSH 05/29/17 17:45 Sodium Chloride 1,000 ml @ 84 mls/hr [id number] IV 05/30/17 10:45 (Theragran) 1 tab DAILY PO 05/30/17 10:45 (D50w (Vial) Inj) 50 ml UNSCH PRN IV PUSH 05/30/17 10:45 (Glucagon Inj) 1 mg UNSCH PRN OTHER 05/30/17 10:45 Reported Meds & Active Scripts Active Gnp Senna Plus 8.6-50 mg (Sennosides-Docusate Sodium) 8.6 Mg-50 Mg Tab 1 Tab PO BID 30 Days [place] (Hydrocodone-Acetaminophen) 5 Mg-325 Mg Tab 1 Tab PO Q6H PRN Reported Prednisone 20 Mg Tab 20 Mg PO DIRECTED 40 MG twice a day x 3 days, then 20 MG daily x 3 days, then 10 MG daily x 3 days Simvastatin 5 Mg Tab 5 Mg PO DAILY Hydroxychloroquine (Hydroxychloroquine Sulfate) 200 Mg Tab 200 Mg PO BID Takw with food Ocuvite (Multiple Vitamins W/ Minerals) 1 Tab 1 Tab PO DAILY Folic Acid 1 Mg Tablet Lisinopril 5 Mg Tab 5 Mg PO DAILY Amlodipine (Amlodipine Besylate) 5 Mg Tab 5 Mg PO DAILY Family History Denies any significant family medical history. States that family members are all healthy and of old age. Social History Denies alcohol use Denies tobacco use Denies illicit drug use Physical Exam Vital Signs Vital Signs Date Time Temp Pulse Resp B/P (MAP) Pulse Ox O2 Delivery O2 Flow Rate FiO2 05/30/17 08:00 96.7 71 17 131/57 (81) 98 05/30/17 04:00 98.2 71 20 159/76 (103) 05/30/17 00:00 97.2 73 18 146/69 (94) 100 05/29/17 19:55 21 05/29/17 16:59 78 18 148/67 (94) 100 05/29/17 13:35 99 21 05/29/17 11:30 98.3 83 19 167/75 (105) 97 Room Air 05/29/17 11:30 98.3 83 19 167/75 (105) 97 Room Air 05/29/17 11:30 83 19 97 Room Air 05/29/17 11:24 98.3 83 19 188/81 (116) 97 Physical Exam This patient lies comfortably in bed. She has ice on the left hip. She notes discomfort to the region of the left hip. HEENT: Normocephalic atraumatic pupils equal round reactive. NECK: Supple. No abnormal masses. Full range of motion. CHEST: Clear to auscultation with no rales or rhonchi's or wheezes. HEART: Regular rate and rhythm. No murmurs. ABDOMEN: Soft, nontender, no masses. Normal active bowel sounds. GENITOURINARY: Deferred MUSCULOSKELETAL: Left hip is in normal alignment. Mild swelling. Well-healed incision from previous total hip replacement. Mild to moderate pain with range of motion. Neurological examination is normal. No calf tenderness. Homans sign negative. Dorsalis pedis 1-2+ Laboratory Laboratory Tests Test 05/29/17 12:35 05/29/17 13:00 05/30/17 07:00 White Blood Count 6.6 5.2 Red Blood Count 3.39 3.34 Hemoglobin 9.3 9.4 Hematocrit 28.5 28.3 Mean Corpuscular Volume 84.2 84.8 Mean Corpuscular Hemoglobin 27.5 28.2 Mean Corpuscular Hemoglobin Concent 32.6 33.3 Red Cell Distribution Width 13.8 13.9 Platelet Count 164 120 Mean Platelet Volume 9.3 9.2 Neutrophils (%) (Auto) 80.1 Lymphocytes (%) (Auto) 6.2 Monocytes (%) (Auto) 13.2 Eosinophils (%) (Auto) 0.2 Basophils (%) (Auto) 0.3 Neutrophils # (Auto) 5.3 Lymphocytes # (Auto) 0.4 Monocytes # (Auto) 0.9 Eosinophils # (Auto) 0.0 Basophils # (Auto) 0.0 CBC Comment DIFF FINAL AUTO DIFF Differential Comment FINAL DIFF MANUAL Prothrombin Time 11.4 Prothromb Time International Ratio 1.0 Activated Partial Thromboplast Time 23.1 Blood Urea Nitrogen 35 30 Creatinine 1.41 1.11 Random Glucose 81 40 Total Protein 6.4 Albumin 3.2 Calcium Level 8.5 8.3 Alkaline Phosphatase 48 Aspartate Amino Transf (AST/SGOT) 52 Alanine Aminotransferase (ALT/SGPT) 32 Total Bilirubin 1.0 Sodium Level 143 141 Potassium Level 3.7 3.4 Chloride Level 107 107 Carbon Dioxide Level 28.0 24.8 Anion Gap 8 9 Estimat Glomerular Filtration Rate 36 47 Urine Color LIGHT-YELLOW Urine Turbidity CLEAR Urine pH 6.0 Urine Specific [place] 1.013 Urine Protein TRACE Urine Glucose (UA) NEG Urine Ketones NEG Urine Occult Blood NEG Urine Nitrite NEG Urine Bilirubin NEG Urine Urobilinogen LESS THAN 2.0 Urine Leukocyte Esterase NEG Urine RBC 4 Urine WBC LESS THAN 1 Urine Bacteria RARE Urine Mucus FEW Microscopic Urinalysis Comment CATH-CULTURE IND Differential Total Cells Counted 100 Neutrophils % (Manual) 76 Band Neutrophils % 5 Lymphocytes % 10 Monocytes % 9 Neutrophils # (Manual) 4.2 Platelet Estimate LOW Platelet Morphology Comment NORMAL Date/Time Source Procedure Growth Status 05/29/17 13:00 Urine Catheterized Urine Urine Culture Pending Received Result Diagram: 05/30/17 0700 05/30/17 0700 Imaging Review of the x-rays of the left hip and review of the radiologist interpretation are consistent with evidence of well-positioned uncemented left hip replacement and evidence of probably an extended actually. There appears to be a fracture in the metaphysis of the proximal femur although distally it appears to be quite stable. This is probably a type A periprosthetic fracture of the femur Assessment & Plan Assessment and Plan Status post left total hip replacement arthroplasty, remote. Left hip periprosthetic femur fracture, type A. PLAN: Toe-touch weightbearing Ambulate as tolerated with a walker. I doubt that this will need further surgical treatment but if this progresses and the stem becomes unstable, revision hip arthroplasty may be necessary. Follow-up in approximately 2 weeks for repeat x-ray. Likely this patient will need to go to correction because of the illness of her and inability to care for herself with this condition Don Hawkins MD May 30, 2017 11:17
[2017-05-30] MEDS: MULTIVITAMIN TAB PO SCH (11:59)
[2017-05-30 12:00] VITALS: BP 149/69; PULSE 78; RESP 17; TEMP 97.6; O2SAT 99
[2017-05-30] MEDS: ENOXAPARIN SODIUM 40 MG/0.4 ML SYRINGE SQ SCH (14:18)
[2017-05-30 16:00] VITALS: BP 155/74; PULSE 80; RESP 17; TEMP 97.8; O2SAT 95
--- NOTE | 2017-05-30 16:06 | EKG ---
Date Performed: 05/29/2017 Time Performed: 13:23:35 PTAGE: 81 years EKG: Sinus rhythm LEFT ANTERIOR FASCICULAR BLOCK NONSPECIFIC T-WAVE ABNORMALITY ABNORMAL ECG NO PREVIOUS TRACING DOCTOR: Renee Garcia Interpretating Date/Time 05/30/2017 16:04:18
[2017-05-30 20:00] VITALS: BP 168/78; PULSE 76; RESP 17; TEMP 99.1; O2SAT 98
[2017-05-31] VITALS: BP 150/79; PULSE 77; RESP 16; TEMP 98.4; O2SAT 99
[2017-05-31 04:00] VITALS: BP 155/83; PULSE 77; RESP 15; TEMP 97.5; O2SAT 100
[2017-05-31 08:00] VITALS: BP 173/84; PULSE 79; RESP 17; TEMP 97.3; O2SAT 100
[2017-05-31] MEDS: DOCUSATE SODIUM 50 MG/SENNA 8.6 MG TAB PO SCH (08:06)
[2017-05-31] MEDS: amLODIPine BESYLATE 5 MG TAB PO SCH (08:07)
[2017-05-31] MEDS: LISINOPRIL 5 MG TAB PO SCH (08:07)
[2017-05-31] MEDS: MULTIVITAMIN TAB PO SCH (08:07)
[2017-05-31] MEDS: PRAVASTATIN SOD 10 MG TAB PO SCH (08:07)
[2017-05-31] MEDS: predniSONE 20 MG TAB PO SCH (08:07)
[2017-05-31] MEDS: HYDROXYCHLOROQUINE SULFATE 200 MG TAB PO SCH (08:07)
--- NOTE | 2017-05-31 08:08 | PD.ORT.PN ---
Subjective Subjective Remarks No complaints. Mild discomfort Objective Vitals Vital Signs Date Time Temp Pulse Resp B/P (MAP) Pulse Ox O2 Delivery O2 Flow Rate FiO2 05/31/17 04:00 97.5 77 15 155/83 (107) 100 05/31/17 00:00 98.4 77 16 150/79 (102) 99 05/30/17 20:00 99.1 76 17 168/78 (108) 98 05/30/17 16:00 97.8 80 17 155/74 (101) 95 05/30/17 12:00 97.6 78 17 149/69 (95) 99 I/O 05/30/17 05/30/17 05/30/17 05/31/17 05/31/17 05/31/17 07:00 15:00 23:00 07:00 15:00 23:00 Intake Total 420 ml 600 ml Output Total 250 ml 625 ml 400 ml Balance -250 ml -205 ml 200 ml Intake Oral 420 ml 600 ml Output Urine Total 250 ml 625 ml 400 ml # Bowel Movements 0 Result Diagram: 05/30/17 0705/30/17 0700 Objective Remarks No incisions. Mild swelling. Mild pain with range of motion Assessment & Plan Assessment and Plan Status post left total hip replacement arthroplasty, remote. Left hip periprosthetic femur fracture, type A. PLAN: Toe-touch weightbearing Ambulate as tolerated with a walker. I doubt that this will need further surgical treatment but if this progresses and the stem becomes unstable, revision hip arthroplasty may be necessary. Follow-up in approximately 2 weeks for repeat x-ray. Likely this patient will need to go to half-way because of the illness of her and inability to care for herself with this condition We will follow peripherally. If any new condition develops, please advise oDn Hawkins MD May 31, 2017 08:08
[2017-05-31] MEDS: SODIUM CHLORIDE 0.9% FLUSH 10 ML FLUSH IV FLUSH SCH (09:00)
[2017-05-31 09:09] VITALS: RESP 16
[2017-05-31] MEDS: SODIUM CHLOR 0.9% 1000 ML INJ 1,000 ML IV SCH (10:30)
== END 2017-05-31 13:00 | DRG 534 ==
LOC: NEPC 11:05 → NEDA 13:13 → N06B 18:10
PROVIDERS: ADMIT Hospitalist; ATTEND Hospitalist
DX: S72.302A Unspecified fracture of shaft of left femur, initial encounter for closed fracture (principal); N17.9 Acute kidney failure, unspecified; N39.0 Urinary tract infection, site not specified; M06.9 Rheumatoid arthritis, unspecified; M97.02XA Periprosthetic fracture around internal prosthetic left hip joint, initial encounter; I10 Essential (primary) hypertension; E78.5 Hyperlipidemia, unspecified; W01.0XXA Fall on same level from slipping, tripping and stumbling without subsequent striking against object, initial encounter; Z96.653 Presence of artificial knee joint, bilateral; Z96.642 Presence of left artificial hip joint; E16.2 Hypoglycemia, unspecified; E87.6 Hypokalemia; Z23 Encounter for immunization
CPT/HCPCS: 51702; 70450; 70553; 71010; 73502; 80048; 80053; 81001; 82948; 85007; 85025; 85027; 85610; 85730; 86850; 86900; 86901; 87086; 90471; 90732; 93005; 96374; 96375; J1170; A9577; G0009; J1650; J2270; J2405; J7030; J7040; J7512